=== PATIENT | female | born 1955 | race Caucasian/White ===

== ENCOUNTER → 2016-05-19 | Outpatient (CLI) | payer OTHER ==
[~2016-05-19] MED LIST: ALDACTONE25 MG PO; ASPIR 8181 MG PO; CHEWABLE MULTIV1 TAB PO; COLACE100 MG PO; DILAUDID2 MG PO; DULCOLAX10 MG R; FLEET ENEMA133 ML R; FLINTSTONES GU1 EACH PO; FOSAMAX70 MG PO; KETOROLAC IV; LASIX40 M1 PO; LEVAQUIN500 MG PO; LIDOCAINE 1% MD20 M1 IDER; MILK OF MA400 MG/5 M PO; NUBAIN IM; PHENERGAN12.5 M1 R; PHENERGAN25 M1 PO; PHENERGAN25 MG/1 M1 IM; PRINIVIL (ZESTR20 MG PO; TYLENOL325 MG PO; VALIUM5 MG PO; XARELTO10 MG PO; ZOFRAN2 MG/1 ML IVP
== END | disposition disaster alternative care site (69) ==
LOC: GRAD 10:45
DX: S09.90XA Unspecified injury of head, initial encounter (principal); R42 Dizziness and giddiness; R11.0 Nausea; H53.8 Other visual disturbances; W19.XXXA Unspecified fall, initial encounter